=== PATIENT | male | born 1955 | race Caucasian/White ===

== ENCOUNTER 2021-04-15 11:33 | Outpatient (CLI) | payer OTHER | END 2021-04-15 11:34 | disposition home or self-care (01) | LOC: CT 11:33 | PROVIDERS: ATTEND Specialist | DX: M54.50 Low back pain, unspecified (principal); M89.9 Disorder of bone, unspecified | CPT/HCPCS: 72131 ==

== ENCOUNTER 2021-04-18 08:42 | Outpatient (CLI) | payer OTHER ==
[2021-04-18] MEDS ORDERED: Iopamidol 370 76% 100 ML VIAL ONE (10:09)
[2021-04-18] MEDS ORDERED: Magnevist 469MG/ML 20 ML VIAL ONE ×2 (10:24)
== END 2021-04-18 08:43 | disposition home or self-care (01) ==
LOC: CT 08:42
PROVIDERS: ATTEND Specialist
DX: C43.9 Malignant melanoma of skin, unspecified (principal); G95.20 Unspecified cord compression; M89.58 Osteolysis, other site; M48.04 Spinal stenosis, thoracic region; M48.05 Spinal stenosis, thoracolumbar region; D49.2 Neoplasm of unspecified behavior of bone, soft tissue, and skin; M48.061 Spinal stenosis, lumbar region without neurogenic claudication
CPT/HCPCS: 70470; 71260; 72157; 72158; 74177; 82565; A9579; Q9967

== ENCOUNTER 2021-04-18 17:30 | Inpatient (IN) | payer OTHER, SELFPAY ==
[2021-04-18] MEDS ORDERED: Acetaminophen 325 MG TAB PO PRN (17:31)
[2021-04-18] MEDS ORDERED: Ondansetron PF 4 MG/2 ML Vial IVP PRN (17:31)
[2021-04-18] MEDS ORDERED: diphenhydrAMINE 50 MG/ML VIAL IVP PRN (17:31)
[2021-04-18] MEDS ORDERED: Morphine 4 MG/ML VIAL SLOW IVP PRN (21:50)
[2021-04-18 23:36] VITALS: BMI 35.6
[2021-04-19 06:34] LABS: #Lymphocytes 0.8 thou/uL (1.20-3.40); #Monocytes 0.5 thou/uL (0.11-0.59); #Neutrophils 3.7 thou/uL (1.40-6.50); %Basophils 0.1 % (0.0-1.0); %Eosinophils 0.3 % (0.0-10.0); %Lymphocytes 14.9 % (21.0-51.0); %Monocytes 10.6 % (0.0-10.0); %Neutrophils 74.2 % (42.0-75.0); Hemoglobin 12.4 g/dL (14.0-18.0); Mean Corpuscular HGB CONC 32.4 g/dL (32.0-36.0); Mean Corpuscular Hemoglobin 28.8 pg (27.0-31.0); Mean Corpuscular Volume 88.9 fL (78.0-98.0); Mean Platelet Volume 6.7 fL (7.4-10.4); Platelet Count 245 thou/uL (130-400); RBC Distribution Width 12.1 % (11.5-14.5); Red Blood Cell (RBC) Count 4.31 mill/uL (4.70-6.10)
[2021-04-19 06:56] LABS: Anion Gap 13 mmol/L (10-20); BUN (Urea Nitrogen) 18 mg/dL (8.4-25.7); Calc. Creatinine Clearance 164 mL/min (70-130); Calcium 9.4 mg/dL (7.8-10.44); Carbon Dioxide 24 mmol/L (23-31); Chloride 105 mmol/L (98-107); Glucose 93 mg/dL (80-115); Potassium 3.9 mmol/L (3.5-5.1); Sodium 138 mmol/L (136-145)
[2021-04-19] MEDS: Cyclobenzaprine 10 MG TAB PO PRN ×3 (07:27→23:08)
[2021-04-19] MEDS: Acetaminophen/Codeine 30-300mg Tablet PO PRN ×3 (07:27→22:04)
[2021-04-19] MEDS ORDERED: Zolpidem Tartrate 5 MG TAB PO PRN (12:57)
[2021-04-19] MEDS ORDERED: Senokot 8.6 MG TAB PO PRN (14:06)
[2021-04-19] MEDS ORDERED: Bisacodyl 5 MG TAB PO PRN (14:07)
[2021-04-19 14:29] LABS: SARS-CoV-2 PCR by NAA Not Detected (NotDetected)
[2021-04-20] MEDS: Acetaminophen/Codeine 30-300mg Tablet PO PRN ×5 (07:27→22:11)
[2021-04-20] MEDS: Cyclobenzaprine 10 MG TAB PO PRN ×2 (07:27→15:59)
[2021-04-20] MEDS ORDERED: CEFAZOLIN 2 GM in Premix Bag 1 BAG IVPB SCH (23:00)
[2021-04-21 06:05] LABS: #Lymphocytes 0.8 thou/uL (1.20-3.40); #Monocytes 0.7 thou/uL (0.11-0.59); #Neutrophils 3.5 thou/uL (1.40-6.50); %Basophils 0.4 % (0.0-1.0); %Eosinophils 0.3 % (0.0-10.0); %Lymphocytes 15.7 % (21.0-51.0); %Monocytes 14.1 % (0.0-10.0); %Neutrophils 69.5 % (42.0-75.0); Mean Corpuscular HGB CONC 34.3 g/dL (32.0-36.0); Mean Corpuscular Hemoglobin 30.3 pg (27.0-31.0); Mean Corpuscular Volume 88.4 fL (78.0-98.0); Mean Platelet Volume 6.7 fL (7.4-10.4); Platelet Count 240 thou/uL (130-400); RBC Distribution Width 12.2 % (11.5-14.5); Red Blood Cell (RBC) Count 4.28 mill/uL (4.70-6.10)
[2021-04-21 06:16] LABS: PTT 33.4 sec (22.9-36.1); Prothrombin Time 12.9 sec (12.0-14.7)
[2021-04-21 06:27] LABS: Anion Gap 10 mmol/L (10-20); BUN (Urea Nitrogen) 17 mg/dL (8.4-25.7); Calc. Creatinine Clearance 156 mL/min (70-130); Calcium 9.8 mg/dL (7.8-10.44); Carbon Dioxide 30 mmol/L (23-31); Chloride 102 mmol/L (98-107); Glucose 96 mg/dL (80-115); Potassium 4.2 mmol/L (3.5-5.1); Sodium 138 mmol/L (136-145)
[2021-04-21] MEDS ORDERED: EPINEPHrine 1 MG/ML AMP ONE (08:01)
[2021-04-21] MEDS ORDERED: Thrombin 5000 UNITS/5 ML VIAL ONE (08:01)
[2021-04-21] MEDS ORDERED: Bupivacaine PF 0.5% 30 ML VIAL ONE (08:01)
[2021-04-21] MEDS ORDERED: Famotidine/PF 20 mg/2ml Vial ONE (08:33)
[2021-04-21] MEDS ORDERED: Fentanyl 100 MCG/2 ML VIAL ONE ×2 (08:33→10:44)
[2021-04-21] MEDS ORDERED: SUGAMMADEX SODIUM 200 MG/2 ML VIAL ONE (08:33)
[2021-04-21] MEDS ORDERED: PROPOFOL 200 MG/20 ML VIAL ONE (08:48)
[2021-04-21] MEDS ORDERED: Metoclopramide HCl 10 MG/2 ML VIAL ONE (08:48)
[2021-04-21] MEDS ORDERED: PHENYLEPHRINE-NS 100 MCG/ML 10 ML SYRINGE ONE (08:48)
[2021-04-21] MEDS ORDERED: Rocuronium Bromide 10 MG/ML (10ML VIAL) ONE (08:48)
[2021-04-21] MEDS ORDERED: Ondansetron PF 4 MG/2 ML Vial ONE (08:48)
[2021-04-21] MEDS ORDERED: Dexamethasone 20 MG/5 ML VIAL ONE (08:48)
[2021-04-21] MEDS ORDERED: ePHEDrine 50 MG/ML VIAL ONE (08:48)
[2021-04-21] MEDS ORDERED: Ketorolac Tromethamine 30 MG/ML VIAL ONE (08:48)
[2021-04-21] MEDS ORDERED: Lidocaine 1% PF 5 ML VIAL ONE (08:48)
[2021-04-21] MEDS ORDERED: PACU-Morphine 4MG/ML VIAL SLOW IVP PRN (10:29)
[2021-04-21] MEDS ORDERED: Meperidine HCl/PF 25 MG/ML VIAL SLOW IVP PRN (10:29)
[2021-04-21] MEDS ORDERED: Ondansetron HCl/PF 4 MG/2 ML Vial IVP PRN (10:29)
[2021-04-21] MEDS ORDERED: Promethazine HCl 25 MG/ML VIAL IVPB PRN (10:29)
[2021-04-21] MEDS ORDERED: Promethazine HCl 25 MG/ML VIAL IM PRN (10:29)
[2021-04-21] MEDS ORDERED: Tamsulosin HCl 0.4 MG CAP PO SCH (11:45)
[2021-04-21] MEDS: Sodium Chloride 0.9% 1,000 ML IV SCH ×2 (15:09→21:28)
[2021-04-21] MEDS: CEFAZOLIN 2 GM, Admixture Fee 1 EACH in Sodium Chloride 0.9% 100 ML IVPB SCH (16:45)
[2021-04-21] MEDS: Cyclobenzaprine 10 MG TAB PO PRN (20:43)
[2021-04-22] MEDS: CEFAZOLIN 2 GM, Admixture Fee 1 EACH in Sodium Chloride 0.9% 100 ML IVPB SCH ×2 (00:44→08:04)
[2021-04-22] MEDS ORDERED: Tamsulosin HCl 0.4 MG CAP PO SCH (06:00)
[2021-04-22 08:58] VITALS: BP 109/69; TEMP 98.4
[2021-04-22] MEDS: Acetaminophen/Codeine 30-300mg Tablet PO PRN (09:34)
== END 2021-04-22 13:29 | disposition home or self-care (01) | DRG 982 ==
LOC: SURG B 17:31
PROVIDERS: ADMIT Neurological Surgery; ATTEND Neurological Surgery
PROC: 01N80ZZ Release Thoracic Nerve, Open Approach (ICD-10-PCS; principal; 2021-04-21)
PROC: 00BT0ZX Excision of Spinal Meninges, Open Approach, Diagnostic (ICD-10-PCS; 2021-04-21)
DX: D49.7 Neoplasm of unspecified behavior of endocrine glands and other parts of nervous system (principal); G95.29 Other cord compression; R94.31 Abnormal electrocardiogram [ECG] [EKG]; Z20.822 Contact with and (suspected) exposure to COVID-19; E78.5 Hyperlipidemia, unspecified; E66.9 Obesity, unspecified; Z79.899 Other long term (current) drug therapy; Z68.35 Body mass index [BMI] 35.0-35.9, adult
CPT/HCPCS: 36415; 76000; 80048; 85025; 85610; 85730; 88305; 88307; 88341; 88342; 88360; 93005; 93010; 93306; 93970; J0171; J0690; J1100; J1885; J2405; J2704; J2765; J3010; J3490; S0020; S0028; U0003; U0005

== ENCOUNTER 2021-05-07 12:20 | Outpatient (CLI) | payer SELFPAY ==
[2021-05-07 21:37] LABS: SARS-CoV-2 PCR by NAA Not Detected (NotDetected)
== END 2021-05-07 12:21 | disposition home or self-care (01) ==
LOC: LABBT 12:20
PROVIDERS: ATTEND Surgery
DX: Z01.812 Encounter for preprocedural laboratory examination (principal); C79.51 Secondary malignant neoplasm of bone; C80.1 Malignant (primary) neoplasm, unspecified; Z20.822 Contact with and (suspected) exposure to COVID-19
CPT/HCPCS: U0003; U0005

== ENCOUNTER 2021-05-08 09:14 | Outpatient (CLI) | payer OTHER | END 2021-05-08 09:15 | disposition home or self-care (01) | LOC: PET 09:14 | PROVIDERS: ATTEND Internal Medicine Hematology & Oncology | DX: C79.51 Secondary malignant neoplasm of bone (principal); C77.9 Secondary and unspecified malignant neoplasm of lymph node, unspecified; C80.1 Malignant (primary) neoplasm, unspecified | CPT/HCPCS: 78815; A9552 ==

== ENCOUNTER 2021-05-12 09:05 | Day surgery (SDC) | payer SELFPAY ==
[2021-05-08 14:53] VITALS: BMI 35.3
[2021-05-12] MEDS ORDERED: EPINEPHrine 1 MG/ML AMP ONE (09:23)
[2021-05-12] MEDS ORDERED: Lidocaine 1% w/Epinephrine 1:100K 20 ML VIAL ONE (09:23)
[2021-05-12] MEDS ORDERED: Bupivacaine 0.25% 10 ML VIAL ONE (09:23)
[2021-05-12] MEDS ORDERED: Sodium Chloride 0.9% 20 ML ONE (09:23)
[2021-05-12] MEDS ORDERED: ceFAZolin 2 GM/DEX 5% 100 ML BAG ONE (09:55)
[2021-05-12] MEDS ORDERED: Fentanyl 100 MCG/2 ML VIAL ONE (10:09)
[2021-05-12] MEDS ORDERED: Midazolam HCl 2 mg/2 ml Vial ONE (10:09)
[2021-05-12] MEDS ORDERED: Lidocaine 1% PF 5 ML VIAL ONE (10:14)
[2021-05-12] MEDS ORDERED: PROPOFOL 200 MG/20 ML VIAL ONE (10:14)
== END 2021-05-12 11:45 | disposition home or self-care (01) ==
LOC: SDC 09:05
PROVIDERS: ATTEND Surgery
PROC: 0JH60WZ Insertion of Totally Implantable Vascular Access Device into Chest Subcutaneous Tissue and Fascia, Open Approach (ICD-10-PCS; principal; 2021-05-12)
PROC: 02HV33Z Insertion of Infusion Device into Superior Vena Cava, Percutaneous Approach (ICD-10-PCS; principal; 2021-05-12)
DX: C85.90 Non-Hodgkin lymphoma, unspecified, unspecified site (principal); Z79.899 Other long term (current) drug therapy
CPT/HCPCS: 71045; C1788; J0171; J1642; J2250; J2704; J3010; S0020

== ENCOUNTER 2021-05-14 09:07 | Day surgery (SDC) | payer OTHER ==
[2021-05-13 12:48] VITALS: BMI 36.8
[2021-05-14] MEDS ORDERED: Methotrexate Sodium/PF 12 MG in Sodium Chloride 0.9% 9.52 ML IT SCH (10:00)
[2021-05-14 12:57] LABS: CSF Source CSF; Clarity Clear (Clear)
[2021-05-14 13:07] LABS: CSF RBC Count - Manual 16 /cu.mm (None Seen); CSF WBC/NonHematics Count-Man 1 /cu.mm (0-5); Tube # 3
== END 2021-05-14 13:15 | disposition home or self-care (01) ==
LOC: RAD 09:07
PROVIDERS: ATTEND Internal Medicine Hematology & Oncology
PROC: 009U3ZX Drainage of Spinal Canal, Percutaneous Approach, Diagnostic (ICD-10-PCS; principal; 2021-05-14)
DX: C83.39 Diffuse large B-cell lymphoma, extranodal and solid organ sites (principal); Z79.52 Long term (current) use of systemic steroids; Z79.899 Other long term (current) drug therapy
CPT/HCPCS: 62270; 84157; 88112; 89051; J9250

== ENCOUNTER 2021-06-04 10:12 | Day surgery (SDC) | payer OTHER ==
[2021-06-03 13:34] VITALS: BMI 36.8
[~2021-06-04 10:12] MED LIST: Methotrexate Sodium/PF 12 MG in Sodium Chloride 0.9% 9.52 ML IT SCH
[2021-06-04 10:43] VITALS: TEMP 98.8
[2021-06-04 12:50] VITALS: BP 118/64
[2021-06-04 13:48] LABS: CSF Source CSF; Clarity Clear (Clear); Tube # 4
== END 2021-06-04 13:45 | disposition home or self-care (01) ==
LOC: RAD 10:12
PROVIDERS: ATTEND Internal Medicine Hematology & Oncology
PROC: 009U3ZX Drainage of Spinal Canal, Percutaneous Approach, Diagnostic (ICD-10-PCS; principal; 2021-06-04)
DX: C83.39 Diffuse large B-cell lymphoma, extranodal and solid organ sites (principal); E78.00 Pure hypercholesterolemia, unspecified; Z79.52 Long term (current) use of systemic steroids; Z79.899 Other long term (current) drug therapy
CPT/HCPCS: 62270; 84157; 88112; 88184; 89051; J9250

== ENCOUNTER 2021-06-25 12:33 | Day surgery (SDC) | payer OTHER ==
[2021-06-24 12:19] VITALS: BMI 36.8
[2021-06-25 15:48] VITALS: BP 134/74
[2021-06-25 16:14] LABS: CSF Source CSF; Clarity Clear (Clear); Tube # 4
== END 2021-06-25 15:30 | disposition home or self-care (01) ==
LOC: RAD 12:33
PROVIDERS: ATTEND Internal Medicine Hematology & Oncology
PROC: 009U3ZX Drainage of Spinal Canal, Percutaneous Approach, Diagnostic (ICD-10-PCS; principal; 2021-06-25)
DX: C83.39 Diffuse large B-cell lymphoma, extranodal and solid organ sites (principal); Z79.52 Long term (current) use of systemic steroids; Z79.899 Other long term (current) drug therapy
CPT/HCPCS: 62270; 84157; 88112; 88184; 89051; J9250

== ENCOUNTER 2021-07-08 14:47 | Outpatient (CLI) | payer OTHER | END 2021-07-08 14:48 | disposition home or self-care (01) | LOC: BICRAD 14:47 | PROVIDERS: ATTEND Neurological Surgery | DX: G95.89 Other specified diseases of spinal cord (principal); M51.34 Other intervertebral disc degeneration, thoracic region | CPT/HCPCS: 72072 ==

== ENCOUNTER 2021-07-10 10:15 | Outpatient (CLI) | payer OTHER | END 2021-07-10 10:16 | disposition home or self-care (01) | LOC: PET 10:15 | PROVIDERS: ATTEND Internal Medicine Hematology & Oncology | DX: C83.39 Diffuse large B-cell lymphoma, extranodal and solid organ sites (principal) | CPT/HCPCS: 78815; A9552 ==

== ENCOUNTER 2021-07-16 12:35 | Day surgery (SDC) | payer OTHER ==
[2021-07-15 10:33] VITALS: BMI 36.8
[2021-07-16 13:14] VITALS: BP 124/70
[2021-07-16 16:08] LABS: CSF Source CSF; Clarity Clear (Clear); Tube # 4
== END 2021-07-16 15:50 | disposition home or self-care (01) ==
LOC: RAD 12:35
PROVIDERS: ATTEND Internal Medicine Hematology & Oncology
PROC: 009U3ZX Drainage of Spinal Canal, Percutaneous Approach, Diagnostic (ICD-10-PCS; principal; 2021-07-16)
DX: C83.39 Diffuse large B-cell lymphoma, extranodal and solid organ sites (principal); E78.00 Pure hypercholesterolemia, unspecified; Z79.899 Other long term (current) drug therapy
CPT/HCPCS: 62270; 84157; 88112; 88184; 89051; J9250

== ENCOUNTER 2021-08-06 12:36 | Day surgery (SDC) | payer OTHER ==
[2021-08-06 13:02] VITALS: BP 127/72; TEMP 97.8; BMI 36.8
[2021-08-06] MEDS ORDERED: Prevnar 13-Val Conj/PF 0.5 ML SYRINGE IM ONE (13:15)
[2021-08-06] MEDS ORDERED: FLU VACC QS2021-22(6MOS UP)/PF 60 MCG/0.5 ML SYRINGE IM ONE (13:15)
[2021-08-06 15:35] LABS: CSF Source CSF; Tube # 3
[2021-08-06 15:36] LABS: CSF RBC Count - Manual 1 /cu.mm (None Seen); CSF WBC/NonHematics Count-Man 0 /cu.mm (0-5); Clarity Clear (Clear)
== END 2021-08-06 15:04 | disposition home or self-care (01) ==
LOC: RAD 12:36
PROVIDERS: ATTEND Internal Medicine Hematology & Oncology
PROC: 009U3ZX Drainage of Spinal Canal, Percutaneous Approach, Diagnostic (ICD-10-PCS; principal; 2021-08-06)
DX: C83.39 Diffuse large B-cell lymphoma, extranodal and solid organ sites (principal)
CPT/HCPCS: 62270; 84157; 88112; 88184; 89051; 90471; 90686; G0008; J9250

== ENCOUNTER 2021-11-13 08:45 | Outpatient (CLI) | payer MEDICARE, OTHER | END 2021-11-13 08:46 | disposition home or self-care (01) | LOC: PET 08:45 | PROVIDERS: ATTEND Internal Medicine Hematology & Oncology | DX: C83.39 Diffuse large B-cell lymphoma, extranodal and solid organ sites (principal); C79.51 Secondary malignant neoplasm of bone | CPT/HCPCS: 78815; A9552 ==

== ENCOUNTER 2021-11-21 12:35 | Outpatient (CLI) | payer MEDICARE, OTHER | END 2021-11-21 12:36 | disposition home or self-care (01) | LOC: CT 12:35 | PROVIDERS: ATTEND Neurological Surgery | DX: G95.89 Other specified diseases of spinal cord (principal); M84.48XA Pathological fracture, other site, initial encounter for fracture | CPT/HCPCS: 72128 ==

== ENCOUNTER 2022-05-11 07:24 | Outpatient (CLI) | payer MEDICARE, OTHER ==
[2022-05-11] MEDS ORDERED: Iopamidol-370 76% 500 ML 1 ML ONE (15:52)
== END 2022-05-11 07:25 | disposition home or self-care (01) ==
LOC: BICCT 07:24
PROVIDERS: ATTEND Internal Medicine Hematology & Oncology
DX: C79.51 Secondary malignant neoplasm of bone (principal); C83.39 Diffuse large B-cell lymphoma, extranodal and solid organ sites
CPT/HCPCS: 71260; 74177; 82565; Q9967